=== PATIENT | female | born 1985 | race Caucasian/White ===

== ENCOUNTER 2017-07-07 00:14 | Inpatient (IN) | payer BC ==
[~2017-07-07 00:14] MED LIST: HYDROcodone/Acetaminophen 5/325 mg Tablet PO PRN; Ibuprofen 800 MG TAB PO PRN; LR / Pitocin 40 units/1000 ml 1,000 ML IV PRN; Lidocaine 1% (PF) 30 ML VIAL SC PRN; Ondansetron HCl/PF 4 MG/2 ML Vial IVP PRN
[2017-07-07 00:55] VITALS: BMI 33.8
--- NOTE | 2017-07-07 01:02 | PDOC.EVN ---
Event Note - Event Note Event Note: @0100: L&D ADMIT NOTE: Patient has Full H&P handwritten in physical chart. Here for IOL at 39 weeks, per Rigo. G1Po with no issues. Vitals WNL CX: /-2/Ceph/Intact EFW 6.5# Gynecoid pelvis Assessment/Plan: Elective IOL. Cytotec. Pain control GBS neg
[2017-07-07] MEDS: Lactated Ringer's 1,000 ML IV SCH ×2 (01:05→05:37)
[2017-07-07 01:17] LABS: Hemoglobin 11.3 g/dL (12.0-16.0); Mean Corpuscular HGB CONC 33.8 g/dL (32.0-36.0); Mean Corpuscular Hemoglobin 28.9 pg (27.0-31.0); Mean Corpuscular Volume 85.5 fl (81.0-99.0); Mean Platelet Volume 7.9 fL (7.4-10.4); Platelet Count 199 thou/uL (130-400); RBC Distribution Width 12.6 % (11.5-14.5); Red Blood Cell (RBC) Count 3.92 mill/uL (4.20-5.40); White Blood Cell (WBC) Count 7.8 thou/uL (4.8-10.8)
[2017-07-07 01:57] LABS: HBSAg Index 0.22 S/CO (0-0.99); HIV (1/2) Antibody/Antigen Non-Reactive (NonReactive); HIV 1/2 INDEX 0.19 S/CO (<1.00); Hep B Surf Ag Non-Reactive S/CO (NonReactive)
[2017-07-07] MEDS: Misoprostol 100 MCG TAB VAG SCH ×2 (02:13→07:08)
[2017-07-07 06:20] VITALS: TEMP 98.3
[2017-07-07 06:39] LABS: Syphilis Antibody Nonreactive (Nonreactive); Syphilis Antibody Index 0.03 S/CO (<1.00 Non-Reactive)
--- NOTE | 2017-07-07 08:41 | PDOC.LDPN ---
Labor & Delivery Progress Note - Subjective Subjective: comfortable - Objective Vital signs reviewed and normal: yes General: NAD Uterine fundus: non tender Dilation: 1 Effacement: 75% Station: -3 FHT: category 1 (130s, mod variability, + accels, no decels) [place] contractions every: 2-5 mins - Assessment (1) Term Code(s): Z34.80 - ENCOUNTER FOR SUPRVSN OF NORMAL , UNSP TRIMESTER Current Visit: Yes Status: Acute -: Discussed plan of care with patient. Cervix slightly more effaced but still 1 cm, mod to firm. Discussed further ripening vs serial induction. Patient and elect to proceed with serial induction with discharge home today. Will follow up with Dr. Sierra next week.
[2017-07-07] MEDS ORDERED: FLU VACC QS2017-18 36 mo. & older 0.5 ML SYRINGE IM ONE (09:00)
--- NOTE | 2017-07-07 13:54 | DIS ---
DATE OF ADMISSION: 07/07/2017 DATE OF DISCHARGE: 07/07/2017 DIAGNOSES: 1. A 39-week intrauterine . 2. Serial induction. PROCEDURES: 1. Cervical ripening 2. Non-stress test HOSPITAL COURSE: The patient presented on 07/07/2017 for cervical ripening and induction of labor. She received Cytotec vaginally x1 and contracted frequently off of this. She was unable to receive a second dose, but her cervical exam was essentially unchanged. After discussing options including further ripening with a balloon or waiting to place another Cytotec versus serial induction with discharge home, the patient and her decided to proceed with discharge home and serial induction. The status was reassuring with a reactive NST throughout her stay. FOLLOWUP: The patient is to call Dr. Sierra's office for appointment later this week. DIET: Regular. ACTIVITIES: As tolerated. MEDICATIONS: vitamin. INSTRUCTIONS: Call or return to Labor and Delivery for heavy vaginal bleeding, leakage of fluid, regular contractions or other concerns. JOSEF
== END 2017-07-07 08:57 | disposition home health service (06) | DRG 782 ==
LOC: L&D 00:14
PROVIDERS: ADMIT Obstetrics & Gynecology; ATTEND Obstetrics & Gynecology
PROC: 3E0P7VZ Introduction of Hormone into Female Reproductive, Via Natural or Artificial Opening (ICD-10-PCS; principal; 2017-07-07)
DX: O61.0 Failed medical induction of labor (principal); Z3A.39 39 weeks gestation of pregnancy
CPT/HCPCS: 85027; 86780; 87340; 87389; 99285

== ENCOUNTER 2017-07-09 14:19 | Inpatient (IN) | payer BC ==
[~2017-07-09 14:19] MED LIST changes: +Bupivacaine/Epinephrine 0.25% 30 ML VIAL ONE; -HYDROcodone/Acetaminophen 5/325 mg Tablet PO PRN; -Ibuprofen 800 MG TAB PO PRN; -LR / Pitocin 40 units/1000 ml 1,000 ML IV PRN; -Lidocaine 1% (PF) 30 ML VIAL SC PRN; -Ondansetron HCl/PF 4 MG/2 ML Vial IVP PRN
[2017-07-09 15:22] VITALS: BMI 33.8
--- NOTE | 2017-07-09 15:37 | PDOC.LDHP ---
Labor and Delivery H&P Chief complaint: contractions HPI: 31 y/o G1 at 39w2d, patient of Dr. Sierra, presents with contractions. Denies VB , LOF, or decreased FM. ROS neg for HEENT, cv, pulm, gi, gu, neuro, psych, skin, musculoskeletal, or constitutional symptoms other than mentioned above. OB History Details: None Current complications: none Past Medical History: None Current medications: pre-kanika vitamins Previous surgical history: none Allergies/Adverse Reactions: Allergies Allergy/AdvReac Type Severity Reaction Status Date / Time No Known Allergies Allergy Verified 07/07/17 00:49 Social history: none - Physical Exam Vital signs reviewed and normal: yes General: NAD, resting Lungs: nonlabored breathing Abdomen: gravid FHT: category 1 (120s, mod variability, + accels, no decels) [place] contractions every: 2-3 mins - Vaginal Exam cm dilated: 2 Effacement: 90% Station: -2 - OB Labs Blood type: O RH: negative Antibody Screen: negative HIV: negative RPR: negative HEPSAg: negative 1 hour GCT: negative GBS: negative Rubella: immune - Assessment L&D Assessment: term patient in labor - Plan Plan: admit to L&D, labor augmentation if indicated, informed consent obtained, anesthesia consult for pain management
[2017-07-09] MEDS ORDERED: FLU VACC QS2017-18 36 mo. & older 0.5 ML SYRINGE IM ONE (17:30)
[2017-07-09] MEDS ORDERED: HYDROcodone/Acetaminophen 5/325 mg Tablet PO PRN ×2 (18:00)
[2017-07-09] MEDS ORDERED: Acetaminophen 500 MG TAB PO PRN (18:00)
[2017-07-09] MEDS ORDERED: Promethazine HCl 25 MG/ML VIAL IM PRN ×2 (18:00→20:45)
[2017-07-09] MEDS ORDERED: Ibuprofen 800 MG TAB PO PRN (18:00)
[2017-07-09] MEDS ORDERED: Lidocaine 1% (PF) 30 ML VIAL SC PRN (18:00)
[2017-07-09] MEDS ORDERED: Misoprostol 200 MCG TAB PR PRN (18:00)
[2017-07-09] MEDS ORDERED: Carboprost 250 MCG/ML AMP IM PRN (18:00)
[2017-07-09] MEDS ORDERED: Ondansetron HCl/PF 4 MG/2 ML Vial IVP PRN ×2 (18:00→20:45)
[2017-07-09] MEDS ORDERED: Diphenoxylate HCl/Atropine Tablet PO PRN ×2 (18:00)
[2017-07-09] MEDS: Lactated Ringer's 1,000 ML IV SCH ×2 (18:20→22:42)
[2017-07-09 19:48] LABS: Mean Corpuscular HGB CONC 34.5 g/dL (32.0-36.0); Mean Corpuscular Hemoglobin 29.7 pg (27.0-31.0); Platelet Count 183 thou/uL (130-400); RBC Distribution Width 12.5 % (11.5-14.5); Red Blood Cell (RBC) Count 3.72 mill/uL (4.20-5.40); White Blood Cell (WBC) Count 8.7 thou/uL (4.8-10.8)
[2017-07-09] MEDS ORDERED: Fentanyl 4 mcg/Marc 0.1% Cadd 100 ML ONE (20:07)
[2017-07-09 20:18] LABS: HBSAg Index 0.31 S/CO (0-0.99); Hep B Surf Ag Non-Reactive S/CO (NonReactive)
[2017-07-09 20:26] LABS: Syphilis Antibody Nonreactive (Nonreactive); Syphilis Antibody Index 0.04 S/CO (<1.00 Non-Reactive)
[2017-07-09] MEDS: Fentanyl 4mcg/Marcaine 0.1% Cassette 100 ML EPIDURAL SCH (20:41)
[2017-07-09] MEDS ORDERED: Acetaminophen 325 MG TAB PO PRN (20:45)
[2017-07-09] MEDS ORDERED: Naloxone HCl 0.4 mg/ml Vial IVP PRN ×2 (20:45)
[2017-07-09] MEDS ORDERED: ePHEDrine/0.9% NaCl/PF SYRINGE 50 mg/10 ml SLOW IVP PRN (20:45)
[2017-07-09] MEDS ORDERED: Lactated Ringer's 500 ML IV PRN (20:45)
[2017-07-09] MEDS ORDERED: Eucerin (Mineral Oil/Petrolatum,White) 30 gm Jar TOP PRN (20:45)
[2017-07-09] MEDS ORDERED: Communication Order-Pharmacy FS SCH (20:45)
[2017-07-09] MEDS ORDERED: diphenhydrAMINE 50 MG/ML VIAL IVP PRN (20:45)
[2017-07-09] MEDS: LR 500 ML/Oxytocin 10 units 500 ML IV SCH (22:42)
[2017-07-10] MEDS: LR 500 ML/Oxytocin 10 units 500 ML IV SCH (04:52)
[2017-07-10] MEDS: Fentanyl 4mcg/Marcaine 0.1% Cassette 100 ML EPIDURAL SCH ×4 (05:00→21:52)
[2017-07-10] MEDS: Lactated Ringer's 1,000 ML IV SCH ×3 (06:45→19:33)
--- NOTE | 2017-07-10 13:01 | PDOC.LDPN ---
Labor & Delivery Progress Note - Subjective Subjective: comfortable - Objective Vital signs reviewed and normal: yes General: resting Dilation: 4 Effacement: 90% Station: -1 FHT: category 1 AROM: clear fluid - Assessment (1) Active labor at term Code(s): [id number] - Current Visit: Yes Status: Acute (2) Term Code(s): Z34.80 - ENCOUNTER FOR SUPRVSN OF NORMAL , UNSP TRIMESTER Current Visit: No Status: Acute Plan: continue plan of care -: A/p: Pt admitted in early labor yesterday, declined interventions for augmentation last night. Cervix with minimal change from 3-4cm on AM exam, AROM performed w clear fluid noted. Pitocin ordered.
--- NOTE | 2017-07-10 13:03 | PDOC.LDPN ---
Labor & Delivery Progress Note - Subjective Subjective: comfortable - Objective Vital signs reviewed and normal: yes General: resting Dilation: 4 Effacement: 90% Station: 0 FHT: category 1 [place] contractions every: 2 IUPC placed: yes - Assessment (1) Active labor at term Code(s): [id number] - Current Visit: Yes Status: Acute (2) Term Code(s): Z34.80 - ENCOUNTER FOR SUPRVSN OF NORMAL , UNSP TRIMESTER Current Visit: No Status: Acute (3) Labor abnormal Code(s): O62.9 - ABNORMALITY OF FORCES OF LABOR, UNSPECIFIED Current Visit: Yes Status: Acute Plan: continue plan of care -: A/P: Pt with no change in dilation since 0800 exam and sp AROM w pitocin. IUPC placed. Continue position changes, pitocin to adequate MVUs. FHT reassuring.
[2017-07-10] MEDS ORDERED: Ampicillin 2 GM, Syringe 5.2 ML in Sterile Water 14.8 ML SLOW IVP SCH (21:45)
--- NOTE | 2017-07-10 22:54 | PDOC.LDPN ---
Labor & Delivery Progress Note - Subjective Subjective: comfortable - Objective Vital signs reviewed and normal: yes General: resting Dilation: 7 Effacement: 90% Station: 0 FHT: category 1 [place] contractions every: 2 AROM: clear fluid - Assessment (1) Active labor at term Code(s): [id number] - Current Visit: Yes Status: Acute (2) Term Code(s): Z34.80 - ENCOUNTER FOR SUPRVSN OF NORMAL , UNSP TRIMESTER Current Visit: No Status: Acute (3) Labor abnormal Code(s): O62.9 - ABNORMALITY OF FORCES OF LABOR, UNSPECIFIED Current Visit: Yes Status: Acute (4) Active labor at term Code(s): [id number] - Current Visit: Yes Status: Acute Plan: continue plan of care
[2017-07-10] MEDS ORDERED: Gentamicin Sulfate 120 MG in Premix Bag 1 BAG IVPB SCH (23:00)
[2017-07-10] MEDS: LR / Pitocin 40 units/1000 ml 1,000 ML IV PRN (23:31)
--- NOTE | 2017-07-10 23:51 | PDOC.OPDEL ---
OB Operative/Delivery Note Delivery Dr/Surgeon: Rigo Pre-Delivery Diagnosis: active labor, other (chorioamnionitis) Weeks gestation: 39 - Findings A Sex: female Weight: 7 lb 1 oz - 1 min: 2 - 5 min: 6 - Additional Findings/Plan Placenta delivered: spontaneous Repaired Obstetrical Laceration: 2nd degree (bilateral abrasions to labia) Estimated blood loss: 300ml Compilations/Other Findings: chorioamniotis dx approx 1.5hrs prior to delivery, maternal fever and tachycardia, delivered from OP, not able to collect cord gas due to difficulty drawing specimen from segment
[2017-07-11] MEDS: LR / Pitocin 40 units/1000 ml 1,000 ML IV PRN (01:02)
[2017-07-11] MEDS ORDERED: diphenhydrAMINE 25 MG CAP PO PRN (02:31)
[2017-07-11] MEDS ORDERED: Bisacodyl 10 MG SUPP PR PRN (02:31)
[2017-07-11] MEDS ORDERED: Adacel (T-DAP) 0.5 ML VIAL IM ONE (02:31)
[2017-07-11] MEDS ORDERED: Promethazine HCl 25 MG/ML VIAL IM PRN (02:31)
[2017-07-11] MEDS ORDERED: Lanolin Ointment 7 GM TUBE TOP PRN (02:31)
[2017-07-11] MEDS ORDERED: Ampicillin 2 GM in Sodium Chloride 0.9% 100 ML IVPB SCH (02:31)
[2017-07-11] MEDS ORDERED: LR / Pitocin 40 units/1000 ml 1,000 ML IV SCH (02:31)
[2017-07-11] MEDS ORDERED: Benzocaine/Menthol 20-0.5% 60 ML CAN TOP PRN (02:31)
[2017-07-11] MEDS ORDERED: Preparation H Ointment 28 GM TUBE PR PRN (02:31)
[2017-07-11] MEDS ORDERED: Ondansetron HCl/PF 4 MG/2 ML Vial IVP PRN (02:31)
[2017-07-11] MEDS ORDERED: Acetaminophen/Codeine 30-300mg Tablet PO PRN ×2 (02:31)
[2017-07-11] MEDS ORDERED: Milk Of Magnesia 30 ML UDCUP PO PRN (02:31)
[2017-07-11] MEDS: Ampicillin 2 GM, Syringe 5.2 ML in Sterile Water 14.8 ML SLOW IVP SCH ×3 (04:49→20:51)
[2017-07-11] MEDS: Ibuprofen 800 MG TAB PO SCH ×3 (04:49→20:52)
[2017-07-11 06:20] LABS: Hemoglobin 10.2 g/dL (12.0-16.0); Mean Corpuscular HGB CONC 34.1 g/dL (32.0-36.0); Mean Corpuscular Hemoglobin 29.1 pg (27.0-31.0); Mean Corpuscular Volume 85.3 fl (81.0-99.0); Mean Platelet Volume 8.3 fL (7.4-10.4); Platelet Count 139 thou/uL (130-400); RBC Distribution Width 12.6 % (11.5-14.5); Red Blood Cell (RBC) Count 3.49 mill/uL (4.20-5.40); White Blood Cell (WBC) Count 23.6 thou/uL (4.8-10.8)
[2017-07-11] MEDS: Gentamicin Sulfate 80 MG in Premix Bag 1 BAG IVPB SCH ×2 (08:45→17:33)
[2017-07-11] MEDS: Docusate Calcium (SURFAK) 240 MG CAP PO SCH ×2 (08:46→20:52)
[2017-07-11] MEDS: Prenatal Vitamin 1 TAB PO SCH (08:46)
[2017-07-11] MEDS: Ferrous Sulfate 325 MG TAB PO SCH ×2 (08:47→18:47)
--- NOTE | 2017-07-11 08:57 | PDOC.PP ---
Post Progress Note Post Day #: 1 Subjective: tired, baby hasn't latched well yet, but resting PO intake tolerated: yes Flatus: yes Ambulation: no Vital Signs (12 hours) Temp Pulse Resp BP Pulse Ox 07/11/17 02:31 98.6 F 85 18 129/65 100 Weight Weight 179 lb - Physical Examination General: NAD Respiratory: non-labored breathing Abdominal: no distention Fundus firm & at: below umb Extremities: negative homans (B) Skin: no rash Neurological: no gross focal deficits Psychiatric: A&Ox3, normal affect Result Diagrams: 07/11/17 05:30 Additional Labs: Post Labs Hep Bs Antigen Non-Reactive S/CO (NonReactive) 07/09/17 19:34 (1) Term Code(s): Z34.80 - ENCOUNTER FOR SUPRVSN OF NORMAL , UNSP TRIMESTER Status: Acute (2) Vaginal delivery Code(s): O80 - ENCOUNTER FOR FULL-TERM UNCOMPLICATED DELIVERY Status: Acute (3) Chorioamnionitis Code(s): O41.1290 - CHORIOAMNIONITIS, UNSP TRIMESTER, NOT APPLICABLE OR UNSP Status: Acute Qualifiers: Fetus number: single or unspecified fetus - Assessment/Plan A?P: PPD 1 sp TSVD complicated by chorioamnionitis. Afebrile since delivery, plan to DC abx after midnight if no fevers today. LC pending.
[2017-07-12] MEDS: Ampicillin 2 GM, Syringe 5.2 ML in Sterile Water 14.8 ML SLOW IVP SCH ×4 (01:25→16:20)
[2017-07-12] MEDS: Gentamicin Sulfate 80 MG in Premix Bag 1 BAG IVPB SCH ×3 (01:48→16:20)
[2017-07-12] MEDS: Ibuprofen 800 MG TAB PO SCH ×2 (06:04→13:44)
[2017-07-12 08:34] VITALS: BP 112/73; TEMP 97.7
[2017-07-12] MEDS: Docusate Calcium (SURFAK) 240 MG CAP PO SCH (09:11)
[2017-07-12] MEDS: Prenatal Vitamin 1 TAB PO SCH (09:11)
[2017-07-12] MEDS: Ferrous Sulfate 325 MG TAB PO SCH ×2 (09:13→17:54)
--- NOTE | 2017-07-12 11:29 | PDOC.PP ---
Post Progress Note Post Day #: 2 Subjective: pumping, some issues w latch, seeing LC PO intake tolerated: yes Flatus: yes Ambulation: yes Vital Signs (12 hours) Temp Pulse Resp BP 07/12/17 08:33 97.7 F 66 20 112/73 07/12/17 08:00 97.7 F 66 20 07/12/17 00:21 98.0 F Weight Weight 179 lb - Physical Examination General: NAD Respiratory: non-labored breathing Fundus firm & at: below umb Extremities: negative homans (B) Skin: no rash Psychiatric: A&Ox3, normal affect Result Diagrams: 07/11/17 05:30 Additional Labs: Post Labs Hep Bs Antigen Non-Reactive S/CO (NonReactive) 07/09/17 19:34 (1) Term Code(s): Z34.80 - ENCOUNTER FOR SUPRVSN OF NORMAL , UNSP TRIMESTER Status: Acute (2) Vaginal delivery Code(s): O80 - ENCOUNTER FOR FULL-TERM UNCOMPLICATED DELIVERY Status: Acute (3) Chorioamnionitis Code(s): O41.1290 - CHORIOAMNIONITIS, UNSP TRIMESTER, NOT APPLICABLE OR UNSP Status: Acute Qualifiers: Fetus number: single or unspecified fetus - Assessment/Plan PPD2, plan for DC home today if baby DCd.
== END 2017-07-12 19:50 | disposition home or self-care (01) | DRG 775 ==
LOC: L&D/OP 14:19 → L&D 19:50 → 3SW 07-11 02:18
PROVIDERS: ADMIT Obstetrics & Gynecology; ATTEND Obstetrics & Gynecology
PROC: 10E0XZZ Delivery of Products of Conception, External Approach (ICD-10-PCS; principal; 2017-07-10)
PROC: 0KQM0ZZ Repair Perineum Muscle, Open Approach (ICD-10-PCS; 2017-07-10)
PROC: 10907ZC Drainage of Amniotic Fluid, Therapeutic from Products of Conception, Via Natural or Artificial Opening (ICD-10-PCS; 2017-07-10)
PROC: 3E033VJ Introduction of Other Hormone into Peripheral Vein, Percutaneous Approach (ICD-10-PCS; 2017-07-10)
PROC: 10H07YZ Insertion of Other Device into Products of Conception, Via Natural or Artificial Opening (ICD-10-PCS; 2017-07-10)
DX: O41.1230 Chorioamnionitis, third trimester, not applicable or unspecified (principal); O62.9 Abnormality of forces of labor, unspecified; O70.1 Second degree perineal laceration during delivery; Z37.0 Single live birth; Z3A.39 39 weeks gestation of pregnancy; O76 Abnormality in fetal heart rate and rhythm complicating labor and delivery
CPT/HCPCS: 36415; 51702; 85027; 86780; 87340; 99285; A4216; J0290; J0595; J1580; J2001; J7120